=== PATIENT | male | born 1970 | race Caucasian/White ===

== ENCOUNTER 2023-04-06 10:12 | Emergency (ER) | payer OTHER ==
[~2023-04-06] VITALS: Ht 175.3 cm; Wt 83.9 kg
--- NOTE | 2023-04-06 10:58 | ED General ---
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 He had a mixture of ketamine, xylazine, butorphanol that had sprayed him in the face and got in his mouth nose and eyes. He had completed the procedure on the pig after he had flushed his face and rinsed his mouth out. He started feeling shaky and having trouble concentrating after the procedure on the big. He had tried calling the emergency department in [place] and told them what he had been exposed to as well as that he had administered a shot of Narcan as well as atipamezole HCL as a antidote or reversal agent for the Xylazine. He then felt like everything was going dark and he had to lay on the floor. He de nies ever actually passing out. EMS reports that he was diaphoretic and shaky when they first arrived on scene. He seemed very anxious and was tachycardic. They started an IV and gave him a Liter of Normal saline. Location Injury Occurred: Veterinary clinic Timing/Duration: 1 Hour Severity: Moderate Associated Systoms: No Chest Pain, No Cough; Diaphoresis; No Fever/Chills, No Headaches, No Loss of Appetite, No Malaise, No Nausea/Vomiting, No Rash, No Seizure, No Shortness of Air, No Syncope; Weakness Allergies and Home Medications Allergies Coded Allergies: No Known Drug Allergies (Unverified , 04/06/23) Patient Home Medication List Home Medication List Reviewed: Yes Review of Systems Review of Systems Constitutional: No chills; diaphoresis; No dizziness, No fever EENTM: No ear discharge, No ear pain, No blurred vision, No vision loss, No epistaxis, No nose congestion Respiratory: No cough, No short of breath Cardiovascular: No edema Gastrointestinal: no symptoms reported Genitourinary: no symptoms reported Musculoskeletal: no symptoms reported Skin: No rash Psychiatric/Neurological: Anxiety; Denies Headache Past Waotjwf-Pdzicw-Wfjzdv Hx Patient Social History Tobacco Use?: No Substance use?: No Alcohol Use?: No Pt feels they are or have been: No Physical Exam Vital Signs Vital Signs - First Documented 04/06/23 10:12 Temp 36.4 Pulse 76 Resp 15 B/P (MAP) 154/83 (106) Pulse Ox 100 O2 Delivery Room Air Capillary Refill : Height, Weight, BMI Height: '" Weight: lbs. oz. kg; BMI Method: General Appearance: Anxious HEENT: PERRL/EOMI, Pharynx Normal Respiratory: Chest Non Tender, Lungs Clear, Normal Breath Sounds, No Accessory Muscle Use, No Respiratory Distress Cardiovascular: Regular Rate, Rhythm, Normal Peripheral Pulses Gastrointestinal: Normal Bowel Sounds, No Pulsatile Mass, Non Tender, Soft Rectal: Deferred Extremity: Normal Capillary Refill, Normal Inspection, No Pedal Edema Neurologic/Psychiatric: Alert, Oriented x3 Skin: Normal Color, Warm/Dry Progress/Results/Core Measures Suspected Sepsis SIRS Temperature: Pulse: Respiratory Rate: Blood Pressure / Mean: Results/Orders My Orders Orders - DELORES ROJO MD Ekg Tracing (04/06/23 10:59) Monitor-Rhythm Ecg Trace Only (04/06/23 10:59) Vital Signs/I&O 04/06/23 04/06/23 10:12 11:15 Temp 36.4 Pulse 76 76 Resp 15 16 B/P (MAP) 154/83 (106) 186/94 Pulse Ox 100 98 O2 Delivery Room Air Room Air Capillary Refill : Progress Note : Progress Note Potential life-threatening diagnosis of ketamine overdose, xylazine overdose, medication reaction. I immediately called poison control on patient's arrival. I reviewed with them the medications that he had been exposed to and that he had gotten some in his mouth, eyes, nose. He had flushed his face after the accident happened. He was able to complete the surgery on the animal. He then started feeling bad and had administered a dose of Narcan as well as a reversal agent for the xylazine. Encouraged to monitor the patient and watch for signs of bradycardia. Otherwise they recommended supportive care there is no specific treatment. He would be able to be discharged after 1 to 2 hours or when he was feeling like he was back to his baseline normal for him. I reviewed these recommendations with him from the poison control and he states he was feeling a lot better and felt like he could go home. His heart rate had stayed in the 60s to 70s and was sinus rhythm both on the cardiac cardiac monitor, auscultation, electrocardiogram. Counseled on follow-up and return precautions. Advised to drink plenty of fluids and stay well-hydrated. Given the number for the poison control line if he had further concerns or questions. ECG Initial ECG Impression Date: Apr 06, 2023 Initial ECG Impression Time: 10:20 Initial ECG Rate: 70 Initial ECG Rhythm: Normal Sinus Initial ECG Comparisson: No Previous ECG Available Comment On my personal interpretation and review of his electrocardiogram that shows a sinus rhythm with heart rate of 70 bpm. [place] interval 178 ms. He had no acute ST elevation. QT interval 408 ms with a QTc interval 428 ms. No prior tracing available for comparison. Departure Impression Primary Impression: Accidental ketamine poisoning Qualified Codes: T41.291A - Poisoning by other general anesthetics, accidental (unintentional), initial encounter Additional Impression: Accident at workplace Disposition: HOME, SELF-CARE Condition: Stable Departure-Patient Inst. Decision time for Depature: 10:55 Referrals: [facility] [place] Patient Instructions: Ketamine, MEDICATION REACTION Add. Discharge Instructions: Stay well hydrated and drink plenty of water. Check back with clinic if having continued concerns. Poison Control reported that the doses you had exposure to would not have a toxic effect and would wear off over the matter of hours. If you have more emergent concerns then return or call Poison Control at [phone]- [phone] All discharge instructions reviewed with patient and/or family. Voiced understanding. DELORES ROJO MD Apr 06, 2023 10:58
[2023-04-06 11:15] VITALS: BP 186/94
== END 2023-04-06 11:17 | disposition home or self-care (01) ==
LOC: ER FS 10:13
DX: T41.291A Poisoning by other general anesthetics, accidental (unintentional), initial encounter (principal); Y92.59 Other trade areas as the place of occurrence of the external cause; Y99.0 Civilian activity done for income or pay
CPT/HCPCS: 93041